=== PATIENT | female | born 1990 | race Caucasian/White ===

== ENCOUNTER 2023-11-28 09:06 | Outpatient (RCR) | payer OTHER, SELFPAY | END 2023-11-28 23:59 | disposition home or self-care (01) | LOC: RPT 09:06 | PROVIDERS: ATTENDING PHYSICIAN Family Medicine | DX: M62.89 Other specified disorders of muscle (principal); N39.3 Stress incontinence (female) (male); Z73.6 Limitation of activities due to disability; M62.81 Muscle weakness (generalized); R27.8 Other lack of coordination | CPT/HCPCS: 97530 ==

== ENCOUNTER 2023-12-12 06:13 | Outpatient (RCR) | payer OTHER, SELFPAY | END 2023-12-12 10:50 | disposition home or self-care (01) | LOC: RPT 06:13 | PROVIDERS: ATTENDING PHYSICIAN Family Medicine | DX: M62.89 Other specified disorders of muscle (principal); N39.3 Stress incontinence (female) (male); Z73.6 Limitation of activities due to disability; M62.81 Muscle weakness (generalized); R27.8 Other lack of coordination | CPT/HCPCS: 97530 ==

== ENCOUNTER → 2024-07-12 10:32 | Outpatient (REF) | payer OTHER, SELFPAY | LOC: RAD 10:32 | PROVIDERS: ATTENDING PHYSICIAN Obstetrics & Gynecology; FAMILY PHYSICIAN Family Medicine | DX: N92.1 Excessive and frequent menstruation with irregular cycle (principal) | CPT/HCPCS: 76830; 76856 ==